=== PATIENT | female | born 1960 | race Hispanic/Latino ===

== ENCOUNTER → 2017-07-22 | Outpatient (CLI) | payer BC ==
--- NOTE | 2017-07-22 12:35 | Diagnostic Imaging Report ---
EXAM: DXA BONE DENSITY INDICATIONS: ROUTINE CHECK FOR OSTEOPORSIS COMPARISON: None. FINDINGS: Total left hip bone mineral density (BMD) (g/cm2):1.049 Left hip T-score (standard deviation relative to young adult mean BMD): 0.7 Left hip Z-score (standard deviation relative to age-matched control group): 1.5 Left femoral neck bone mineral density (BMD) (g/cm2):0.901 Left femoral neck T-score:0.2 Left femoral neck Z-score:1.4 Lumbar bone mineral density (BMD) (g/cm2):1.066 Lumbar T-score (standard deviation relative to young adult mean BMD): 0.2 Lumbar Z-score (standard deviation relative to age-matched control group):1.5 CONCLUSION: 1. Bone mineral density in the left hip is classified as normal. Fracture risk is not increased. 2. Bone mineral density in the spine is classified as normal. Fracture risk is not increased. World Health Organization Classification: *The Z-score is provided for informational purposes. The T-score is preferable for clinical decisions. When comparing exams, a change of >4% is considered statistically significant. SUGGESTED RECOMMENDATIONS: Normal \T\ Osteopenia:Consideration should be given to use of calcium supplementation, daily multiple vitamins and adequate exercise, as preventive measures against osteoporosis, if clinically indicated. Osteoporosis \T\ Severe Osteoporosis:In addition to the above, consideration should be given to medical therapy against osteoporosis, if clinically indicated. Dictated by: Moisés Collado M.D. on 07/22/2017 at 12:44 Electronically approved by: Moisés Collado M.D. on 07/22/2017 at 12:44
== END ==
LOC: DX 10:06
PROVIDERS: ATTEND Internal Medicine
DX: Z13.9 Encounter for screening, unspecified (principal)
CPT/HCPCS: 77080

== ENCOUNTER → 2018-06-12 | Outpatient (CLI) | payer OTHER ==
--- NOTE | 2018-06-16 16:24 | Diagnostic Imaging Report ---
#[id number] - MGSCRBIL #BILATERAL DIGITAL SCREENING MAMMOGRAM WITH CAD: 06/12/2018 CLINICAL: Routine screening. Comparison is made to exam dated: 06/13/2017 mammogram - [facility]. Current study contains 5 films. The tissue of both breasts is heterogeneously dense. This may lower the sensitivity of mammography. Current study was also evaluated with a Computer Aided Detection (CAD) system. There are benign vascular calcifications and a calcification in the right breast. There also is a benign mass in the left breast. No significant masses, calcifications, or other findings are seen in either breast. There has been no significant interval change. IMPRESSION: BENIGN There is no mammographic evidence of malignancy. A 1 year screening mammogram is recommended. The patient will be notified by letter of the results. Jesus Alberto rao/sukumar:06/16/2018 08:37:52 Front Of House Manager: Nury REYES([place])(M), [facility] letter sent: Compared to Prior B9 Mammogram BI-RADS: 2 Benign
== END ==
LOC: MAMMO 09:20
PROVIDERS: ATTEND Obstetrics & Gynecology
DX: Z12.31 Encounter for screening mammogram for malignant neoplasm of breast (principal)
CPT/HCPCS: 77067